=== PATIENT | female | born 1990 | race Caucasian/White ===

== ENCOUNTER 2017-07-19 21:26 | Emergency (ER) | payer OTHER, SELFPAY ==
[2017-07-19 21:33] VITALS: BP 127/87; PULSE 73; RESP 15; TEMP 36.7; O2SAT 98; BMI 43.0
[2017-07-19 22:12] LABS: Influenza A and B by PCR Rapid Negative (Negative)
== END 2017-07-19 23:40 | disposition left against medical advice (07) ==
LOC: ED 21:30
PROVIDERS: Emergency Medicine
DX: R50.9 Fever, unspecified (principal)
CPT/HCPCS: 87400; 99281; 99282